=== PATIENT | female | born 1935 | race Caucasian/White ===

== ENCOUNTER 2016-09-17 14:34 | Inpatient (IN) | payer OTHER, BC ==
[~2016-09-17] VITALS: Ht 157.5 cm; Wt 59.0 kg
[~2016-09-17 14:34] MED LIST: ADULT LOW DOSE81 M1 PO; ADVAIR HFA120 INHALA IH; ARMD EYE SUPPORT; ATENOLOL50 MG PO; DUONEB 2.5-0.5 M3 ML AEROSOL; HYDRALAZINE HCL10 MG PO; HYDROCHLOROTHIA50 MG PO; KEFLEX500 MG PO; LISINOPRIL20 MG PO; METFORMIN HCL500 MG PO; OS-CAL 500+D31 EACH PO; PLAVIX75 MG PO; PREDNISONE10 MG PO; SIMVASTATIN20 MG PO; SPIRIVA RESPIMAT4 GM IH
[2016-09-17] MEDS ORDERED: NIFEDIPINE ER30 MG PO (14:55)
[2016-09-17] MEDS ORDERED: LISINOPRIL10 MG PO (14:55)
[2016-09-17 15:31] LABS: HEMATOCRIT 43.4 % (36.0-46.0); MCHC 32.9 G/DL (30.0-36.0); MCV 85.1 FL (83-99); MEAN PLAT.VOLUME 9.4 uM^3 (9.5-12.4); PLATELET COUNT 358 K/uL (156-360); RBC DIS.WIDTH-CV 14.5 % (11.8-14.6); RBC DIS.WIDTH-SD 44.9 % (39-53); WHITE BLOOD COUNT 12.1 K/uL (4.1-10.2)
[2016-09-17 15:41] LABS: CHLORIDE 95 mEq/L (99-109); POTASSIUM 4.4 mEq/L (3.7-5.4); SODIUM 131 mEq/L (136-147)
[2016-09-17 15:43] LABS: GLUCOSE 163 mg/dL (70-99)
[2016-09-17 15:44] LABS: ANION GAP 12 MEQ/L (2-14)
[2016-09-17 15:47] LABS: GFR ESTIMATE (CALCULATED) > 59 mL/min/
[2016-09-17 15:48] LABS: UREA NITROGEN (BUN) 19 mg/dL (9-23)
[2016-09-17 15:52] LABS: TROP-I INTERPRETATION NEGATIVE; TROPONIN-I < 0.01 ng/mL (0.0-0.30)
[2016-09-17 16:23] LABS: INFLUENZA A VIRAL ANTIGEN NEGATIVE; INFLUENZA B VIRAL ANTIGEN NEGATIVE
[2016-09-17 16:55] LABS: ABS NEUTROPHIL COUNT 9.6; ANISOCYTOSIS 1+; ATYPICAL LYMPHOCYTE 4.3 %; BAND NEUTROPHILS 23.5 % (0-8.0); EOSINOPHIL ABS CT 0; INSTRUMENT ABS NEUTROPHIL CT 9.2 K/uL; LYMPHOCYTES 8.7 % (15.0-45.0); PLAT.SUFFICIENCY ADEQUATE; POIKILOCYTOSIS 1+; POLYCHROMASIA 1+; SEG.NEUTROPHILS 55.7 % (46.0-76.0)
[2016-09-17] MEDS ORDERED: CENTRUM SILVER1 EAC4 PO (19:37)
[2016-09-17] MEDS ORDERED: VITAMIN D33000 UNIT PO (19:38)
[2016-09-17 20:00] VITALS: BP 148/65
[2016-09-17 20:49] LABS: POINT-OF-CARE METER ID UU14174216
[2016-09-17 22:32] LABS: TROP-I INTERPRETATION NEGATIVE; TROPONIN-I < 0.01 ng/mL (0.0-0.30)
[2016-09-18] VITALS (7 sets, daily range): BP systolic 109–150; BP diastolic 53–65
[2016-09-18 04:12] LABS: HEMATOCRIT 40.3 % (36.0-46.0); MCH 28.3 PG (29.0-34.0); MCHC 33.3 G/DL (30.0-36.0); MEAN PLAT.VOLUME 9.5 uM^3 (9.5-12.4); PLATELET COUNT 337 K/uL (156-360); RBC DIS.WIDTH-CV 14.6 % (11.8-14.6); RBC DIS.WIDTH-SD 45.7 % (39-53); RED BLOOD COUNT 4.74 M/uL (3.80-5.20); WHITE BLOOD COUNT 9.6 K/uL (4.1-10.2)
[2016-09-18 04:26] LABS: CHLORIDE 97 mEq/L (99-109); POTASSIUM 4.1 mEq/L (3.7-5.4); SODIUM 134 mEq/L (136-147)
[2016-09-18 04:27] LABS: GLUCOSE 167 mg/dL (70-99)
[2016-09-18 04:29] LABS: ANION GAP 9 MEQ/L (2-14)
[2016-09-18 04:31] LABS: GFR ESTIMATE (CALCULATED) > 59 mL/min/
[2016-09-18 04:32] LABS: UREA NITROGEN (BUN) 22 mg/dL (9-23)
[2016-09-18 04:39] LABS: TROP-I INTERPRETATION NEGATIVE; TROPONIN-I < 0.01 ng/mL (0.0-0.30)
[2016-09-18 05:03] LABS: EOSINOPHIL (%) 0 % (0-5); IMMATURE GRANULOCYTE (%) 0.2 % (0.0-0.7); INSTRUMENT ABS NEUTROPHIL CT 8.1 K/uL; LYMPHOCYTE COUNT 0.9 K/uL (1.0-2.8); MONOCYTE (%) 6.6 % (3-12); MONOCYTE COUNT 0.6 K/uL (0-0.8); NEUTROPHIL (%) 83.7 % (45-76); NEUTROPHIL COUNT 8.1 K/uL (1.8-6.4); PLAT.SUFFICIENCY ADEQUATE
[2016-09-18 05:05] LABS: ADD MIUA? YES; BILIRUBIN NEGATIVE; BLOOD NEGATIVE; COLOR YELLOW ((YELLOW)); GLUCOSE (STRIP) 50; KETONES NEGATIVE; LEUKOCYTES TRACE; NITRITE NEGATIVE; PROTEIN (STRIP) 30; SPECIFIC GRAVITY 1.013 (1.000-1.030); UROBILINOGEN 0.2 MG/DL (0.2-1.0)
[2016-09-18 05:21] LABS: BACTERIA NONE SEEN /HPF; EPITHELIAL CELLS RARE /HPF; HYALINE CASTS 15-20 /LPF; MUCUS 1+ /LPF; UCUL ADDED? NO
[2016-09-18 09:10] LABS: INTERNAL CONTROL VALID? YES
[2016-09-18 16:38] LABS: POINT-OF-CARE METER ID UU13113781
[2016-09-19 03:13] VITALS: BP 141/65
[2016-09-19 06:22] LABS: EOSINOPHIL (%) 0.2 % (0-5); HEMATOCRIT 42.4 % (36.0-46.0); IMMATURE GRANULOCYTE (%) 0.3 % (0.0-0.7); INSTRUMENT ABS NEUTROPHIL CT 9.8 K/uL; LYMPHOCYTE COUNT 1.3 K/uL (1.0-2.8); MCH 27.6 PG (29.0-34.0); MCHC 31.8 G/DL (30.0-36.0); MCV 86.7 FL (83-99); MEAN PLAT.VOLUME 9.8 uM^3 (9.5-12.4); MONOCYTE (%) 12.8 % (3-12); MONOCYTE COUNT 1.6 K/uL (0-0.8); NEUTROPHIL (%) 76.5 % (45-76); NEUTROPHIL COUNT 9.8 K/uL (1.8-6.4); RBC DIS.WIDTH-CV 14.7 % (11.8-14.6); RBC DIS.WIDTH-SD 46.6 % (39-53); RED BLOOD COUNT 4.89 M/uL (3.80-5.20)
[2016-09-19 06:25] LABS: PLATELET COUNT 444 K/uL (156-360); WHITE BLOOD COUNT 12.7 K/uL (4.1-10.2)
[2016-09-19 06:41] LABS: ANION GAP 8 MEQ/L (2-14); CHLORIDE 96 MEQ/L (99-109); GFR ESTIMATE (CALCULATED) > 59 mL/min/; GLUCOSE 129 mg/dL (70-99); POTASSIUM 3.9 MEQ/L (3.7-5.4); SAMPLE HEMOLYSIS CHECK 0; SAMPLE ICTERIC CHECK 0; SAMPLE LIPEMIA CHECK 0; SODIUM 136 MEQ/L (136-147)
[2016-09-19 06:42] LABS: UREA NITROGEN (BUN) 39 mg/dL (9-23)
[2016-09-19 07:31] VITALS: BP 141/63
[2016-09-19 08:22] LABS: POINT-OF-CARE METER ID UU14174216
[2016-09-19 11:00] VITALS: BP 164/68
[2016-09-19 11:19] LABS: POINT-OF-CARE METER ID UU14174216
[2016-09-19 15:00] VITALS: BP 137/68
[2016-09-19 16:05] LABS: POINT-OF-CARE METER ID UU14174216
[2016-09-19 19:30] VITALS: BP 137/62
[2016-09-19 20:53] LABS: POINT-OF-CARE METER ID UU14174216
[2016-09-20] VITALS (7 sets, daily range): BP systolic 134–162; BP diastolic 61–90
[2016-09-20 06:36] LABS: EOSINOPHIL (%) 0.4 % (0-5); EOSINOPHIL COUNT 0.1 K/uL (0-0.3); HEMATOCRIT 40.7 % (36.0-46.0); IMMATURE GRANULOCYTE (%) 0.5 % (0.0-0.7); IMMATURE GRANULOCYTE COUNT 0.1 K/uL; INSTRUMENT ABS NEUTROPHIL CT 9.7 K/uL; LYMPHOCYTE COUNT 1.7 K/uL (1.0-2.8); MCH 28.2 PG (29.0-34.0); MCHC 32.7 G/DL (30.0-36.0); MCV 86.4 FL (83-99); MEAN PLAT.VOLUME 9.4 uM^3 (9.5-12.4); MONOCYTE (%) 12.4 % (3-12); MONOCYTE COUNT 1.6 K/uL (0-0.8); NEUTROPHIL (%) 73.6 % (45-76); NEUTROPHIL COUNT 9.7 K/uL (1.8-6.4); PLATELET COUNT 405 K/uL (156-360); RBC DIS.WIDTH-CV 14.6 % (11.8-14.6); RBC DIS.WIDTH-SD 46.3 % (39-53); RED BLOOD COUNT 4.71 M/uL (3.80-5.20); WHITE BLOOD COUNT 13.1 K/uL (4.1-10.2)
[2016-09-20 06:56] LABS: ANION GAP 9 MEQ/L (2-14); CHLORIDE 99 MEQ/L (99-109); GFR ESTIMATE (CALCULATED) > 59 mL/min/; GLUCOSE 123 mg/dL (70-99); POTASSIUM 3.8 MEQ/L (3.7-5.4); SAMPLE HEMOLYSIS CHECK 0; SAMPLE ICTERIC CHECK 0; SAMPLE LIPEMIA CHECK 0; SODIUM 139 MEQ/L (136-147); UREA NITROGEN (BUN) 20 mg/dL (9-23)
[2016-09-21 04:05] VITALS: BP 144/63
[2016-09-21 06:16] LABS: EOSINOPHIL (%) 0.8 % (0-5); EOSINOPHIL COUNT 0.1 K/uL (0-0.3); HEMATOCRIT 40.6 % (36.0-46.0); IMMATURE GRANULOCYTE (%) 1.2 % (0.0-0.7); IMMATURE GRANULOCYTE COUNT 0.2 K/uL; INSTRUMENT ABS NEUTROPHIL CT 9.7 K/uL; LYMPHOCYTE COUNT 1.8 K/uL (1.0-2.8); MCH 27.8 PG (29.0-34.0); MCHC 31.8 G/DL (30.0-36.0); MCV 87.5 FL (83-99); MEAN PLAT.VOLUME 9.3 uM^3 (9.5-12.4); MONOCYTE (%) 11.6 % (3-12); MONOCYTE COUNT 1.5 K/uL (0-0.8); NEUTROPHIL (%) 72.5 % (45-76); NEUTROPHIL COUNT 9.7 K/uL (1.8-6.4); PLATELET COUNT 440 K/uL (156-360); RBC DIS.WIDTH-CV 14.7 % (11.8-14.6); RBC DIS.WIDTH-SD 46.9 % (39-53); RED BLOOD COUNT 4.64 M/uL (3.80-5.20); WHITE BLOOD COUNT 13.3 K/uL (4.1-10.2)
[2016-09-21 06:39] LABS: ANION GAP 10 MEQ/L (2-14); CHLORIDE 100 MEQ/L (99-109); GFR ESTIMATE (CALCULATED) > 59 mL/min/; GLUCOSE 100 mg/dL (70-99); POTASSIUM 3.9 MEQ/L (3.7-5.4); SAMPLE HEMOLYSIS CHECK 0; SAMPLE ICTERIC CHECK 0; SAMPLE LIPEMIA CHECK 0; SODIUM 140 MEQ/L (136-147); UREA NITROGEN (BUN) 20 mg/dL (9-23)
[2016-09-21 08:20] VITALS: BP 140/65
[2016-09-21 09:39] LABS: D-DIMER ELISA > 4.00 mg/L FEU (< 0.57)
[2016-09-21 12:50] VITALS: BP 150/65
[2016-09-21 16:41] LABS: POINT-OF-CARE METER ID UU13113781
[2016-09-21 16:49] VITALS: BP 137/61
[2016-09-21 19:00] VITALS: BP 134/63
[2016-09-21 20:23] LABS: POINT-OF-CARE METER ID UU13113781
[2016-09-21 23:00] VITALS: BP 156/67
[2016-09-22 03:45] VITALS: BP 166/76
[2016-09-22 06:06] LABS: EOSINOPHIL (%) 0.1 % (0-5); HEMATOCRIT 41.6 % (36.0-46.0); IMMATURE GRANULOCYTE (%) 2.4 % (0.0-0.7); IMMATURE GRANULOCYTE COUNT 0.3 K/uL; INSTRUMENT ABS NEUTROPHIL CT 10.3 K/uL; LYMPHOCYTE COUNT 1.9 K/uL (1.0-2.8); MCH 27.6 PG (29.0-34.0); MCV 86.3 FL (83-99); MEAN PLAT.VOLUME 9.1 uM^3 (9.5-12.4); MONOCYTE (%) 6.8 % (3-12); MONOCYTE COUNT 0.9 K/uL (0-0.8); NEUTROPHIL (%) 76.4 % (45-76); NEUTROPHIL COUNT 10.3 K/uL (1.8-6.4); PLATELET COUNT 492 K/uL (156-360); RBC DIS.WIDTH-CV 14.2 % (11.8-14.6); RBC DIS.WIDTH-SD 45.1 % (39-53); RED BLOOD COUNT 4.82 M/uL (3.80-5.20); WHITE BLOOD COUNT 13.5 K/uL (4.1-10.2)
[2016-09-22 06:39] LABS: ANION GAP 10 MEQ/L (2-14); CHLORIDE 100 MEQ/L (99-109); GFR ESTIMATE (CALCULATED) > 59 mL/min/; GLUCOSE 142 mg/dL (70-99); POTASSIUM 4.4 MEQ/L (3.7-5.4); SAMPLE HEMOLYSIS CHECK 0; SAMPLE ICTERIC CHECK 0; SAMPLE LIPEMIA CHECK 0; SODIUM 139 MEQ/L (136-147); UREA NITROGEN (BUN) 25 mg/dL (9-23)
[2016-09-22 07:26] LABS: POINT-OF-CARE METER ID UU13113781
[2016-09-22 07:45] VITALS: BP 150/67
[2016-09-22] MEDS ORDERED: PREDNISONE10 MG PO (09:48)
[2016-09-22] MEDS ORDERED: FLORASTOR250 MG PO (09:48)
[2016-09-22] MEDS ORDERED: CEFTIN500 MG PO (09:48)
[2016-09-22 11:11] VITALS: BP 136/74
== END 2016-09-22 13:36 | disposition home health service (06) | DRG 193 ==
LOC: EME 14:34 → 4EAST 18:33 → EDOF 18:33 → 4EAST 19:57
PROVIDERS: Emergency Medicine; Hospitalist; Internal Medicine; Student in an Organized Health Care Education/Training Program
DX: J18.9 Pneumonia, unspecified organism (principal); J96.01 Acute respiratory failure with hypoxia; E87.1 Hypo-osmolality and hyponatremia; E11.8 Type 2 diabetes mellitus with unspecified complications; I71.2 Thoracic aortic aneurysm, without rupture; I10 Essential (primary) hypertension; E78.5 Hyperlipidemia, unspecified; I25.10 Atherosclerotic heart disease of native coronary artery without angina pectoris; J45.909 Unspecified asthma, uncomplicated; Z86.73 Personal history of transient ischemic attack (TIA), and cerebral infarction without residual deficits; Z87.891 Personal history of nicotine dependence; Z90.49 Acquired absence of other specified parts of digestive tract; Z85.3 Personal history of malignant neoplasm of breast
CPT/HCPCS: 71010; 71020; 71275; 80048; 81003; 82948; 83605; 83735; 83880; 84484; 85025; 85379; 87040; 87070; 87205; 87449; 87502; 93005; 93970; 94640; 94640 76; 94799; 97530 GO; 97530 GP; 99202; 99281; 99285; J0456; J0696; J1644; J1815; J1940; J2930; J7040; J7050; J7512; J7644

== ENCOUNTER 2017-07-10 12:02 | Inpatient (IN) | payer OTHER, BC ==
[~2017-07-10] VITALS: Ht 157.5 cm; Wt 55.3 kg
[~2017-07-10 12:02] MED LIST changes: +CEFTIN500 MG PO; +CENTRUM SILVER1 EAC4 PO; +FLORASTOR250 MG PO; +LISINOPRIL10 MG PO; +NIFEDIPINE ER30 MG PO; +VITAMIN D33000 UNIT PO
[2017-07-10 14:07] LABS: HEMATOCRIT 41.4 % (36.0-46.0); HEMOGLOBIN 13.9 G/DL (11.9-15.5); MCH 29.1 PG (29.0-34.0); MCHC 33.6 G/DL (30.0-36.0); MCV 86.6 FL (83-99); PLATELET COUNT 356 K/uL (156-360); RBC DIS.WIDTH-CV 13.8 % (11.8-14.6); RBC DIS.WIDTH-SD 43.8 % (39-53); RED BLOOD COUNT 4.78 M/uL (3.80-5.20); WHITE BLOOD COUNT 11.9 K/uL (4.1-10.2)
[2017-07-10 14:21] LABS: CHLORIDE 98 mEq/L (99-109); POTASSIUM 4.3 mEq/L (3.7-5.4); SODIUM 135 mEq/L (136-147)
[2017-07-10 14:22] LABS: GLUCOSE 113 mg/dL (70-99)
[2017-07-10 14:26] LABS: CREATININE 0.6 mg/dL (0.6-1.3); GFR ESTIMATE (CALCULATED) > 59 mL/min/
[2017-07-10 14:27] LABS: UREA NITROGEN (BUN) 19 mg/dL (9-23)
[2017-07-10 16:26] LABS: BASOPHIL (%) 0.4 % (0-1); BASOPHIL COUNT 0.1 K/uL (0-0.1); EOSINOPHIL (%) 1.4 % (0-5); EOSINOPHIL COUNT 0.2 K/uL (0-0.3); HEMATOCRIT 39.9 % (36.0-46.0); HEMOGLOBIN 13.5 G/DL (11.9-15.5); IMMATURE GRANULOCYTE (%) 0.2 % (0.0-0.7); LYMPHOCYTE COUNT 1.7 K/uL (1.0-2.8); MCH 29.1 PG (29.0-34.0); MCHC 33.8 G/DL (30.0-36.0); MONOCYTE (%) 9.3 % (3-12); MONOCYTE COUNT 1.1 K/uL (0-0.8); NEUTROPHIL (%) 74.7 % (45-76); NEUTROPHIL COUNT 8.9 K/uL (1.8-6.4); PLATELET COUNT 357 K/uL (156-360); RBC DIS.WIDTH-CV 13.9 % (11.8-14.6); RBC DIS.WIDTH-SD 43.6 % (39-53); RED BLOOD COUNT 4.64 M/uL (3.80-5.20); WHITE BLOOD COUNT 11.9 K/uL (4.1-10.2)
[2017-07-10] MEDS ORDERED: SYMBICORT60 INHALA1 IH (16:58)
[2017-07-10 17:35] LABS: TROP-I INTERPRETATION NEGATIVE; TROPONIN-I < 0.01 ng/mL (0.0-0.30)
[2017-07-10 18:28] VITALS: BP 166/72
[2017-07-10 23:21] LABS: TROP-I INTERPRETATION NEGATIVE; TROPONIN-I < 0.01 ng/mL (0.0-0.30)
[2017-07-11] VITALS: BP 140/61
[2017-07-11 03:36] VITALS: BP 123/58
[2017-07-11 06:01] LABS: HEMATOCRIT 38.8 % (36.0-46.0); HEMOGLOBIN 12.7 G/DL (11.9-15.5); MCH 29.1 PG (29.0-34.0); MCHC 32.7 G/DL (30.0-36.0); MCV 88.8 FL (83-99); PLATELET COUNT 326 K/uL (156-360); RBC DIS.WIDTH-SD 44.9 % (39-53); RED BLOOD COUNT 4.37 M/uL (3.80-5.20); WHITE BLOOD COUNT 9.2 K/uL (4.1-10.2)
[2017-07-11 06:19] LABS: TROP-I INTERPRETATION NEGATIVE; TROPONIN-I < 0.01 ng/mL (0.0-0.30)
[2017-07-11 06:29] LABS: CHLORIDE 99 MEQ/L (99-109); CREATININE 0.5 MG/DL (0.6-1.3); GFR ESTIMATE (CALCULATED) > 59 mL/min/; GLUCOSE 160 mg/dL (70-99); SODIUM 138 MEQ/L (136-147); UREA NITROGEN (BUN) 17 mg/dL (9-23)
[2017-07-11 06:30] LABS: POTASSIUM 5.5 MEQ/L (3.7-5.4)
[2017-07-11 07:11] VITALS: BP 139/66
[2017-07-11 11:21] VITALS: BP 133/64
[2017-07-11 11:43] LABS: CHLORIDE 97 MEQ/L (99-109); CREATININE 0.5 MG/DL (0.6-1.3); GFR ESTIMATE (CALCULATED) > 59 mL/min/; GLUCOSE 227 mg/dL (70-99); POTASSIUM 4.6 MEQ/L (3.7-5.4); SODIUM 134 MEQ/L (136-147); UREA NITROGEN (BUN) 18 mg/dL (9-23)
[2017-07-11 15:04] VITALS: BP 136/65
[2017-07-11 19:37] VITALS: BP 152/62
[2017-07-12 00:24] VITALS: BP 160/62
[2017-07-12 07:47] VITALS: BP 176/74
[2017-07-12] MEDS ORDERED: ACIDOPHILUS LA1 EACH PO (09:48)
[2017-07-12] MEDS ORDERED: OSELTAMIVIR PHO30 MG PO (09:48)
[2017-07-12] MEDS ORDERED: CEFDINIR300 MG PO (09:48)
[2017-07-12] MEDS ORDERED: PREDNISONE10 MG PO (09:49)
[2017-07-12] MEDS ORDERED: DUONEB 2.5-0.5 M3 ML AEROSOL (09:49)
[2017-07-12] MEDS ORDERED: AERONEB GO NEB1 EACH MC (09:49)
[2017-07-12 11:46] VITALS: BP 169/71
== END 2017-07-12 15:00 | disposition home health service (06) | DRG 193 ==
LOC: EME 12:02 → EDOF 16:27 → 5SOUTH 16:27 → ENRESERV 16:28 → 5SOUTH 17:57
PROVIDERS: Emergency Medicine; Internal Medicine; Physician Assistant
DX: J18.9 Pneumonia, unspecified organism (principal); J96.01 Acute respiratory failure with hypoxia; E11.9 Type 2 diabetes mellitus without complications; J44.0 Chronic obstructive pulmonary disease with (acute) lower respiratory infection; J10.1 Influenza due to other identified influenza virus with other respiratory manifestations; J44.1 Chronic obstructive pulmonary disease with (acute) exacerbation; I10 Essential (primary) hypertension; E78.5 Hyperlipidemia, unspecified; I25.10 Atherosclerotic heart disease of native coronary artery without angina pectoris; H35.30 Unspecified macular degeneration; Z90.410 Acquired total absence of pancreas; Z90.49 Acquired absence of other specified parts of digestive tract; Z87.891 Personal history of nicotine dependence; Z88.1 Allergy status to other antibiotic agents; Z88.5 Allergy status to narcotic agent; Z88.0 Allergy status to penicillin; Z85.3 Personal history of malignant neoplasm of breast; Z86.73 Personal history of transient ischemic attack (TIA), and cerebral infarction without residual deficits; Z87.01 Personal history of pneumonia (recurrent)
CPT/HCPCS: 71046; 80048; 80048 91; 82948; 83605; 84484; 85025; 85027; 87040; 87070; 87205; 87502; 93005; 94640; 94640 76; 94760; 94799; 99202; 99281; 99285; J0456; J0696; J1650; J1815; J2920; J2930; J7030